=== PATIENT | male | born 1955 | race Caucasian/White ===

== ENCOUNTER 2018-09-01 05:50 | Day surgery (SDC) | payer MEDICARE ==
[~2018-09-01] VITALS: Ht 175.3 cm; Wt 88.6 kg
[2018-09-01] MEDS ORDERED: TYLENOL (06:56)
[2018-09-01] MEDS ORDERED: PANTOPRAZOLE (06:56)
[2018-09-01] MEDS ORDERED: MECLIZINE (06:56)
[2018-09-01] MEDS ORDERED: PROZAC (06:56)
[2018-09-01 07:00] VITALS: Ht 175.3 cm; Wt 88.6 kg
[2018-09-01 07:02] VITALS: BP 176/91; PULSE 89; RESP 18
--- NOTE | 2018-09-01 07:30 | PREAC ---
Date/Time of Note Date/Time of Note DATE: 09/01/18 TIME: 07:28 Anesthesia Eval and Record Evaluation Time Pre-Procedure Interview DATE: 09/01/18 TIME: 07:28 Age 62 Sex male NPO: 8 hrs Preoperative diagnosis screening Planned procedure colonoscopy Past Medical History Past Medical History: Includes GI: GERD, Other (pyloric stenosis ) Psych: Depression Surgery & Anesthesia Issues No known issue Meds Anticoagulation: No Beta Valentine within 24 hr: No Reason Beta Valentine not given: Pt. not on B-Valentine Reported Medications [Tylenol] No Conflict Check 09/01/18 [Meclizine] No Conflict Check 09/01/18 [Pantoprazole] No Conflict Check 09/01/18 [Prozac] No Conflict Check 09/01/18 Meds reviewed: Yes Allergies Coded Allergies: No Known Allergy (Unverified , 09/01/18) Allergies Reviewed: Yes Labs/Studies Labs Reviewed: Reviewed by anesthesiologist test: N/A Pre-procedure Exam Last vitals Vital Signs Date Temp Pulse Resp B/P (MAP) Pulse Ox O2 O2 Flow FiO2 Time Delivery Rate 09/01/18 89 18 176/91 97 Room Air 07:02 (119) Airway: Adequate mouth opening, Adequate thyromental dist Mallampati: Mallampati II Teeth: Normal Lung: Normal Heart: Normal ASA Physical Status ASA physical status: 2 Emergency: None Planned Anesthetic General/MAC: Mask Planned Pain Management Parenteral pain med Pre-operative Attestations Prior to commencing anesthesia and surgery, the patient was re-evaluated, there was verification of: *The patient's identity *The results of appropriate recent lab work and preoperative vital signs *The above evaluation not changing prior to induction *Anesthetic plan, risk benefits, alternative and complications discussed with patient/family; questions answered; patient/family understands, accepts and wishes to proceed. DOUG BAH MD Sep 01, 2018 07:30
[2018-09-01] MEDS ORDERED: LIDOCAINE 2% (SDV) 5 ML INJ ONE (07:32)
[2018-09-01] MEDS ORDERED: PROPOFOL 40 ML ONE (07:32)
[2018-09-01] MEDS ORDERED: PROPOFOL 20 ML ONE (08:31)
--- NOTE | 2018-09-01 08:37 | PAC ---
Date/Time of Note Date/Time of Note DATE: 09/01/18 TIME: 08:35 Post-Anesthesia Notes Post-Anesthesia Note Last documented vital signs Vital Signs Date Temp Pulse Resp B/P (MAP) Pulse Ox O2 O2 Flow FiO2 Time Delivery Rate 09/01/18 89 18 176/91 97 Room Air 07:02 (119) Activity: WNL Respiratory function: WNL Cardiovascular function: WNL Mental status: Baseline Pain reasonably controlled: Yes Hydration appropriate: Yes Nausea/Vomiting absent: Yes Comments BP: 107/63 HR: 72 RR: 15 T: 98 SaO2; 100% DOUG BAH MD Sep 01, 2018 08:37
[2018-09-01] MEDS ORDERED: ONDANSETRON 4 MG INJ IV PRN (09:00)
[2018-09-01 09:22] VITALS: BP 129/79; RESP 20
== END 2018-09-01 15:28 | disposition home or self-care (01) ==
LOC: GIL 05:50
PROVIDERS: ATTEND Internal Medicine Gastroenterology
DX: Z12.11 Encounter for screening for malignant neoplasm of colon (principal); D12.2 Benign neoplasm of ascending colon; K64.8 Other hemorrhoids
CPT/HCPCS: 88305